=== PATIENT | female | born 1980 | race Caucasian/White ===

== ENCOUNTER → 2022-02-23 | Outpatient (CLI) | payer MEDICARE, MEDICAID ==
[~2022-02-23] MED LIST: REGADENOSON 0.4 MG/5 ML PF SYRINGE IVP ONE; SESTAMIBI TC99M/UD ISOTOPE 1 EA INJ INJ ONE
[2022-02-23 11:34] VITALS: BP 149/97
[2022-02-23 11:46] VITALS: BP 139/92
== END | disposition home or self-care (01) ==
LOC: CARDMN 08:45
PROVIDERS: ATTEND Internal Medicine Cardiovascular Disease
DX: I25.9 Chronic ischemic heart disease, unspecified (principal); I50.1 Left ventricular failure, unspecified
CPT/HCPCS: 78452; 93017; 93306; A9500

== ENCOUNTER 2022-03-02 07:05 | Day surgery (SDC) | payer MEDICARE, MEDICAID ==
[~2022-03-02 07:05] MED LIST changes: +ASPI-1444 PO; +ATOR-2 PO; +LISI20TA24 PO; +METF-1211 PO; +METO-408 PO; +PANT40TA54 PO; -REGADENOSON 0.4 MG/5 ML PF SYRINGE IVP ONE; -SESTAMIBI TC99M/UD ISOTOPE 1 EA INJ INJ ONE; +SODIUM CHLORIDE 0.9% 1,000 ML IV ONE; +SODIUM CHLORIDE 0.9% 1,000 ML ONE; +TICA90TA PO
[2022-03-02] MEDS ORDERED: FENO67CA16 PO (07:46)
[2022-03-02] MEDS ORDERED: HYDR500 PO (07:46)
[2022-03-02] MEDS ORDERED: ONDA-104 PO (07:46)
[2022-03-02] MEDS ORDERED: HYDR-4723 PO (07:46)
[2022-03-02 07:58] LABS: COVID AG,FIA SOURCE NASOPHARYNGEAL
[2022-03-02 08:14] LABS: BASOPHILS % (AUTO) 1.3 % (0.0-2.0); EOSINOPHILS % (AUTO) 4.8 % (1.0-6.0); HEMATOCRIT 33.8 % (36-46); HEMOGLOBIN 10.4 g/dL (12.0-16.0); LYMPHOCYTES # (AUTO) 5.3 K/uL (1.0-4.8); LYMPHOCYTES % (AUTO) 29.8 % (22.0-44.0); MEAN CORPUSCULAR HEMOGLOBIN 25.4 pg (26.0-34.0); MEAN CORPUSCULAR HGB CONC 30.8 G/dL (31.0-37.0); MEAN CORPUSCULAR VOLUME 82 fL (80-100); MONOCYTES # (AUTO) 1.4 K/uL (0.1-1.0); MONOCYTES % (AUTO) 7.9 % (2.0-9.0); NEUTROPHILS # (AUTO) 10.1 K/uL (1.8-7.7); NEUTROPHILS % (AUTO) 56.2 % (40.0-70.0); RED BLOOD CELL COUNT(AUTO) 4.11 MIL/uL (4.00-5.20); RED CELL DISTRIBUTION WIDTH 17.8 % (11.5-14.5)
[2022-03-02 08:26] LABS: PLATELET COUNT (AUTO) 881 K/uL (150-450)
[2022-03-02] MEDS ORDERED: FentaNYL CITRATE PF 100 MCG/2 ML VIAL ONE (08:34)
[2022-03-02] MEDS ORDERED: IOHEXOL 300 MG/ML 150 ML VIAL ONE (08:35)
[2022-03-02] MEDS ORDERED: IOHEXOL 300 MG/ML 100 ML VIAL ONE (08:35)
[2022-03-02] MEDS ORDERED: SODIUM BICARBONATE 50 MEQ/50 ML VIAL ONE (08:35)
[2022-03-02] MEDS ORDERED: MIDAZOLAM HCL 2 MG/2 ML VIAL ONE (08:35)
[2022-03-02] MEDS ORDERED: HEPARIN SODIUM 1000 UNITS/NS 1,000 ML ONE (08:35)
[2022-03-02] MEDS ORDERED: LIDOCAINE/PF 1% 30 ML VIAL ONE (08:35)
[2022-03-02] MEDS ORDERED: IOHEXOL 300 MG/ML 50 ML VIAL ONE (08:35)
[2022-03-02 08:38] LABS: ANION GAP 12 mmol/L (8-16); CALCIUM, TOTAL 9.3 mg/dL (8.8-10.5); CARBON DIOXIDE 23 mmol/L (22-29); CHLORIDE 100 mmol/L (98-107); CREATININE 0.86 mg/dL (0.60-1.30); GLOMERULAR FILTR. RATE CALC > 60 mL/min (>60); GLUCOSE,RANDOM 264 mg/dL (70-110); POTASSIUM 4.4 mmol/L (3.5-5.1); SODIUM SERUM 135 mmol/L (136-145); UREA NITROGEN, BLOOD 13 mg/dL (7-18)
[2022-03-02 08:40] LABS: ALANINE AMINOTRANSFERASE 34 U/L (12-78); ALBUMIN 3.3 g/dL (3.4-5.0); ALKALINE PHOSPHATASE 64 U/L (46-116); ASPARTATE AMINOTRANSFERASE 28 U/L (15-37); BILIRUBIN,TOTAL 0.3 mg/dL (0.1-1.0); TOTAL PROTEIN, SERUM 7.5 g/dL (6.4-8.2)
[2022-03-02] MEDS ORDERED: IOHEXOL 300 MG/ML 150 ML VIAL ICOR ONE (08:45)
[2022-03-02] MEDS ORDERED: LIDOCAINE 1% 30 ML/SOD BICARB 8.4% 4 ML SQ ONE (08:45)
[2022-03-02] MEDS ORDERED: HEPARIN SODIUM 1000 UNITS/NS 1,000 ML IARTER ONE (08:45)
[2022-03-02 08:47] LABS: PROTHROMBIN TIME 10.4 SEC (9.4-11.6)
[2022-03-02 09:05] LABS: GLUCOMETER DEV NAME(LOC) SDS.; GLUCOSE,POINT OF CARE 234 MG/DL (70-110)
== END 2022-03-02 10:55 | disposition home or self-care (01) ==
LOC: CATHLAB 07:05
PROVIDERS: ATTEND Internal Medicine Cardiovascular Disease
DX: I25.10 Atherosclerotic heart disease of native coronary artery without angina pectoris (principal); Z53.8 Procedure and treatment not carried out for other reasons; Z79.01 Long term (current) use of anticoagulants
CPT/HCPCS: 36415; 80053; 82962; 85025; 85610; 85730; 87426; 93005; C9803; J1644; J3490 ×2; J7030; Q9967 ×3; J2250; J3010